=== PATIENT | female | born 1985 | race Caucasian/White ===

== ENCOUNTER 2017-07-25 16:13 | Inpatient (IN) | payer OTHER ==
[~2017-07-25] VITALS: Ht 152.4 cm; Wt 54.4 kg
--- NOTE | 2017-07-25 16:20 | NUR ---
Pre-Admission Assessment Upholstery Restorer assessed pt in intake room with pt's mother present. Pt is cooperative, anxious and easily distracted. VS WNL. Pt is not actively under the influence and is appropriate for admission into [facility]
--- NOTE | 2017-07-25 17:20 | NUR ---
Admission Note VS: 135/88,78,18,98.4,97%,0/10 COWS: 7 Pt admitted to [facility] per ambulation, accompanied by direct marketing coordinator. Pt is a female to male transgender and skin check performed by BETTY Davis, skin intact per report. Pt is admitted under the care of Dr. Dumont. Pt was seen by automobile service writer in intake where assessment was performed. Pt is anxious, cooperative and has poor concentration. A/O x4 and makes needs known. Pt denies HI/SI or A/VH. Pt endorses emotional volatility, describing rapid cycling behaviors with impulsive and unpredictable behaviors. Pt endorses feelings of depression and anxiety. Urine and blood samples collected in intake, results pending. Pt reports a home medication of Testosterone, but is unable to locate the medication and is not sure of dosing. Pt denies any significant medical history, stating, " depression, but that was years ago." Also states a history of seizure, 10-12 years ago r/t over-heating. Pt is a full code, eats a regular diet and has NKA. Pt states he has been in 15 previous treatment centers, " between detox and rehab, this will be 15." Pt states he was in a facility 3 days ago and left the facility for 15 minutes to run around the block, " not to use." Pt admits this was impulsive and immature and takes responsibility for his transgressions. Substance Use History 1. Heroin - .5 grams IV daily - since age 23 2. Meth - smokes daily, unknown amount.
[2017-07-25 17:34] LABS: *URINE HCG, QUAL NEGATIVE (NEGATIVE)
[2017-07-25 17:38] LABS: ALANINE AMINOTRANSFERASE 45 U/L (14-59); ALKALINE PHOSPHATASE 94 U/L (50-136); ASPARTATE AMINOTRANSFERASE 38 U/L (15-37); BILIRUBIN,TOTAL 0.2 mg/dL (0.2-1.0); CARBON DIOXIDE 28 mmol/L (21-32); CHLORIDE 104 mmol/L (98-107); CREATININE 0.9 mg/dL (0.6-1.3); GLUCOSE 103 mg/dL (74-106); MAGNESIUM 1.8 mg/dL (1.8-2.4); TOTAL PROTEIN, SERUM 8.1 g/dL (6.4-8.2); UREA NITROGEN, BLOOD 8 mg/dL (7-18)
[2017-07-25 17:42] LABS: *AMPHETAMINE, URINE NEGATIVE (NEGATIVE); *BARBITURATE, URINE NEGATIVE (NEGATIVE); *CANNABINOID, URINE NEGATIVE (NEGATIVE); *COCCAINE, URINE NEGATIVE (NEGATIVE); *OPIATE, URINE POSITIVE (NEGATIVE); *PHENCYCLIDINE SCREEN,URINE NEGATIVE (NEGATIVE)
--- NOTE | 2017-07-25 17:53 | NUR ---
PCP Pt states she receives services at [facility] in [place]. States she sees someone, " named Mandy, I don't know the last name."
[2017-07-25 18:01] LABS: ETHANOL < 3 MG/DL (0-0)
[2017-07-25 18:02] LABS: BASOPHILS # (AUTO) 0.1 K/uL (0.0-8.0); BASOPHILS % (AUTO) 1.2 % (0.0-2.0); EOSINOPHILS # (AUTO) 0.1 K/uL (0.0-0.7); EOSINOPHILS % (AUTO) 1.2 % (0.0-7.0); HEMATOCRIT 40.2 % (37-47); HEMOGLOBIN 13.6 G/DL (12.0-16.0); LYMPHOCYTES % (AUTO) 19.9 % (20.5-51.5); MEAN CORPUSCULAR HEMOGLOBIN 33.1 UUG (27.0-31.0); MEAN CORPUSCULAR HGB CONC 34 g/dL (32.0-37.0); MEAN CORPUSCULAR VOLUME 98.3 FL (81.0-99.0); MONOCYTES # (AUTO) 0.6 K/UL (0.1-1.30); MONOCYTES % (AUTO) 5.8 % (0.0-11.0); NEUTROPHILS # (AUTO) 7.3 K/UL (1.8-8.9); NEUTROPHILS % (AUTO) 71.9 % (38.5-71.5); PLATELET COUNT (AUTO) 249 K/UL (150-450); RED BLOOD CELL COUNT(AUTO) 4.09 MIL/UL (4.2-5.4); WHITE BLOOD COUNT (AUTO) 10.1 K/UL (4.0-11.2)
--- NOTE | 2017-07-25 18:45 | NUR ---
End of Shift Pig Breeder provided report on 31 year old female to male transgender admitted on 07/25/17 for Heroin and Methamphetamine detoxification. Pt reports a history of IV Heroin use, 0.5 gram a day and smoking meth, unknown amount daily. Pt reports NKA, a regular diet and full code. Endorses PMH of depression and one seizure 10-12 years ago related to heat exhaustion. Pts initial COWS 7 scored at 1620. Pt is cooperative and pleasant, makes needs known A/O x4. Bed in low position, wheels locked, side rails up x2 and call light within reach.
[2017-07-25 18:48] LABS: BAND % (MANUAL) 8 % (0-10); LYMPHOCYTES % (MANUAL) 21 % (20-40); MONOCYTES % (MANUAL) 4 % (2-10); NEUTROPHILS % (MANUAL) 67 % (42-75)
--- NOTE | 2017-07-25 19:30 | NUR ---
Start of Shift Note: Report received from day shift nurse. Pt is a 31F, admitted for Opiate and Methamphetamine dependence. Pt was in bed with eyes closed upon the start of shift. AOx4 without s/s of acute distress noted. Pt is full code, on regular diet, and on fall/seizure precautions. Pt noted with NKA. Pt reports hx of Anxiety, Depression. Pt is currently on Subutex PRN to manage withdrawal symptoms. Per day shift nurse, pt's last COWS was 7 at 1600. Bed in lowest position. Side rails up x2. Call light functioning and within reach. All needs attended and met. Will continue to monitor.
[2017-07-25 20:00] VITALS: BP 126/90
--- NOTE | 2017-07-25 20:39 | NUR ---
PRN Benadryl: Pt requested sleep medication. PRN Benadryl given as ordered.
[2017-07-26] VITALS: BP 113/75
[2017-07-26 04:00] VITALS: BP 113/75
--- NOTE | 2017-07-26 07:12 | NUR ---
End of Shift Note: Pt is a 31F, admitted for Opiate and Methamphetamine dependence. Pt is full code, on regular diet, and on fall/seizure precautions. Pt noted with NKA. Pt reports hx of Anxiety, Depression. Pt slept for 6 hours. Respirations even and unlabored. Last COWS was 2. No N/V noted during the shift. Pt reported inability to sleep. PRN Benadryl given as ordered. Fall and Sz precautions observed. Bed in lowest position. Side rails up x2. Call light functioning and within reach. All needs attended and met. Will endorse to day shift nurse.
--- NOTE | 2017-07-26 07:20 | NUR ---
Start of Shift Tie Fastener received report on 31 year old female, female to male transgender. Pt identifies as a male, Rojas. Admitted 07/25/17 for Heroin and Methamphetamine detoxification. Pt has NKA, eats a regular diet and is a full code. Reports a PMH of depression. Pt had a OT dose of Subutex administered last night with an additional PRN of Benadryl as well. Tie Fastener encounters pt in room resting with eyes closed. Respiration even and unlabored, rise and fall of chest noted Bed in low position, wheels locked, side rails up x2 and call light within reach.
[2017-07-26 08:53] VITALS: BP 131/82
[2017-07-26 12:30] VITALS: BP 100/66
--- NOTE | 2017-07-26 12:31 | NUR ---
OT Clonidine/Subutex ordered medication for pt after assessment. Pt to not be on a taper. Orders to treat the symptoms and use the Subutex PRN, when needed. Environmental Compliance Specialist administered medication per order, pt tolerated well. Will continue to monitor, support and [id number] according to plan of care.
--- NOTE | 2017-07-26 13:01 | NUR ---
OT Subutex Re-assessment Pt resting in room, lying in bed with eyes closed. Respirations even and unlabored, with rise and fall of chest noted. No complaints voiced.
--- NOTE | 2017-07-26 13:31 | NUR ---
OT Clonidine Re-assessment Pt remains resting with eyes closed, no complaints voiced.
[2017-07-26 16:30] VITALS: BP 112/78
--- NOTE | 2017-07-26 18:53 | NUR ---
End of Shift Worm Raiser provided report on 31 year old female, female to male transgender. Pt identifies as a male, Rojas. Admitted 07/25/17 for Heroin and Methamphetamine detoxification. Pt has NKA, eats a regular diet and is a full code. Reports a PMH of depression. Pt had a OT dose of Subutex and Clonidine and will not be placed on a taper. Received orders to use PRN Subutex as needed. Pt is A/O x4, calm and cooperative. Pleasant and makes needs known. Clear thought and speech content. Bed in low position, wheels locked, side rails up x2 and call light within reach.
--- NOTE | 2017-07-26 19:37 | NUR ---
Start of Shift Report received from AM shift. Patient is a 31 year old female to male transgender. Pt identifies as a male, Rojas. Admitted 07/25/17 for Heroin and Methamphetamine detoxification. Pt has NKA, regular diet and is a full code. Reports a PMH of anxiety and depression. Currently on Subutex PRN with last COWS 3. At change of shift patient in room resting with no noted complaints offered. Bed locked in lowest position, side rails up x2 and call light within reach.
[2017-07-26 20:00] VITALS: BP 109/68
--- NOTE | 2017-07-26 20:38 | NUR ---
PRN MEDICATION Benadryl 50 mg PO given at 2030 for c/o insomnia with effect pending Clonidine 0.1 mg PO given at 2031 for anxiety/restlessness COWS 4. effect pending Tylenol 650 mg PO given at 2037 for c/o throat pain. 4 on scale 1-10. effect pending.
--- NOTE | 2017-07-26 21:38 | NUR ---
REASSESSMENT OF PATIENT patient reassessed one hour after administration of PRN medications. Ptient resting comfortably in bed with eyes closed/ states feeling sleepy after administration of Benadryl. Throat pain improved to a 2 on scale of 1-10 after Tylenol. No further c/o anxiety at present time one hour after Clonidine 0.1 mg. Effectiveness noted.
[2017-07-27] VITALS: BP 103/64
--- NOTE | 2017-07-27 04:10 | NUR ---
0400 COWS deferred. Vital signs refused. Patient refused 0400 vital signs. Stated he wants to sleep. COWS deferred for sleep.
--- NOTE | 2017-07-27 06:52 | NUR ---
End of shift Patient is a 31 year old female to male transgender who identifies as male. He was admitted on for opiate and methamphetamine dependence. He is on Subutex PRN. He has a history of anxiety and depression. Denies SI or HI. History of a seizure approximately 10-12 years ago. Pt is full code, on a regular diet, and on fall/seizure precautions. Pt noted with NKA. Vital signs at 1999 BP 109/68, P 100, R 13, SPO2 99% on RA, T 98.7. COWS 4. Patient received Clonidine 0.1 mg PO PRN at 2031, and Benadryl 50mg PO at 2030 with good effect. Patient with c/o soreness in throat Charge nurse and MD made aware. Patient afebrile. Received Tylenol 650 mg PO at 2037 with effect noted. VS at 0000 BP 103/64, P 69, R 13, SPO2 98% on RA, T 98.2 COWS 3. Pt slept for 9 hours . Fall and SZ precautions in place. Bed in lowest and locked position. Side rails up x2. Call light within reach. Intake 1600 ml output 5 voids. Report to day shift nurse.
--- NOTE | 2017-07-27 07:15 | NUR ---
Start of Shift Report from the night nurse: pt is 31 y.o female/transgender here for Opiate r/t heroin r/t 0.2g and Methamphetamine "unknown" intake amount; PRN Subutex only and observation. Pt is a full code, NKA, seizure precautions ordered. Hhx: anxiety, depression and smoker. V/S stable. Skin is intact. PRN Clonidine, Benadryl and Tylenol given last night. Pt c/o sore throat so I will f/u with MD. Last COWS 3. Pt is asleep in room. Will cont. to monitor the pt.
[2017-07-27 08:00] VITALS: BP 104/67
--- NOTE | 2017-07-27 09:45 | NUR ---
PRN Medication Administration Pt is in room and c/o lower back pain 5/10; PRN Motrin given as ordered. Will reassess in 1H.
--- NOTE | 2017-07-27 10:45 | NUR ---
Reassessment Pt is getting ready to go to group and denies pack pain; Motrin is effective. Will cont. to monitor the pt.
[2017-07-27 11:06] LABS: HEPATITIS B SURFACE AG Negative (Negative)
[2017-07-27 12:00] VITALS: BP 113/72
[2017-07-27] MEDS ORDERED: HYDR-3895 PO (15:39)
[2017-07-27] MEDS ORDERED: METH-406 PO (15:39)
[2017-07-27] MEDS ORDERED: GABA-534 PO (15:39)
[2017-07-27] MEDS ORDERED: DIPH50CA37 PO (15:39)
[2017-07-27] MEDS ORDERED: IBUP-1955 PO (15:39)
[2017-07-27 16:00] VITALS: BP 101/62
--- NOTE | 2017-07-27 19:30 | NUR ---
Start of Shift Report received from AM shift. Patient is a 31 year old female to male transgender. Pt identifies as a male. Admitted 07/25/17 for Heroin detox and Methamphetamine addiction. Pt has NKA, regular diet and is a full code. Reports a PMH of anxiety and depression. Last COWS 1. Vital signs stable. At change of shift patient up and active on unit, attending group. Bed locked in lowest position, side rails up x2 safety precautions in place, and call light within reach.
--- NOTE | 2017-07-27 19:30 | NUR ---
End of Shift Report to night nurse: pt is 31 y.o female/transgender here for Opiate r/t heroin r/t 0.2g and Methamphetamine "unknown" intake amount; PRN Subutex only and observation. Pt is a full code, NKA, seizure precautions ordered. Hhx: anxiety, depression and smoker. V/S stable. Skin is intact. PRN Motrin 600mg given 1345pm for back pain. Pt c/o sore throat and new orders for oral swab & endorsed to night nurse to f/u. Last COWS 1. New order for the pt to be d/c'd tomorrow.
[2017-07-27 20:00] VITALS: BP 110/71
--- NOTE | 2017-07-27 20:49 | NUR ---
PRN medication Patient received clonidine 0.1mg PO prn at 2048 for anxiety PAtient received Benadryl 50 mg PO at 2048 for C/O difficulty sleeping. Patient received PRN Cepacol lozenge for throat pain. effect pending. Influenza swab completed as ordered. Strep Swab completed as ordered.
--- NOTE | 2017-07-27 21:49 | NUR ---
Reassessment of patient Patient reassessed one hour after administration of clonidine 0.1mg PO for anxiety, patient reports feeling more relaxed and without noted anxiety. Patient reassessed one hour after receiving Benadryl 50 mg PO for C/O difficulty sleeping patient was in bed with eyes closed upon reassessment. Patient states "I was falling asleep now" Patient reassessed one hour after PRN Cepacol lozenge for throat pain administered. States it helped some with no noted throat pain present at reassessment time.
--- NOTE | 2017-07-28 00:06 | NUR ---
COWS deferred Vital signs refused Vital signs at 0000 refused. COWS deferred for sleep.
--- NOTE | 2017-07-28 04:03 | NUR ---
COWS deferred Vital signs refused Vital signs at 0400 refused. COWS deferred for sleep.
--- NOTE | 2017-07-28 06:52 | NUR ---
End of shift Patient is a 31 year old female to male transgender who identifies as male. He was admitted on for opiate and methamphetamine dependence. He has a history of anxiety and depression. Denies SI or HI. History of a seizure approximately 10-12 years ago. Pt is full code, on a regular diet, and on fall/seizure precautions. Pt noted with NKA. Vital signs at 1999 BP110/71, P 102, R 18, SPO2 99% on RA, T 98.2. COWS 4. Patient received Clonidine 0.1 mg PO PRN, cepacol lozenge and Benadryl 50mg PO at 2048 with good effect. SWAB of nares for influenza A and B completed, result negative. SWAB of throat for strep A completed, result negative.. Patient afebrile. Pt slept for 6 hours Intake 841 ml, output 3 voids. Fall and SZ precautions in place. Bed in lowest and locked position. Side rails up x2. Call light within reach. Report given to AM nurse.
--- NOTE | 2017-07-28 07:00 | NUR ---
Start of Shift Report from the night nurse with update: pt is 31 y.o female/transgender here for Opiate r/t heroin r/t 0.2g and Methamphetamine "unknown" intake amount; PRN Subutex only and observation. Pt is a full code, NKA, seizure precautions ordered. Hhx: anxiety, depression and smoker. V/S stable. Skin is intact. Throat swab done last night and is negative to staph and strep; new orders for Cepacol lozenger since pt c /o sore throat and PRN Clonidine & Benadryl. Pt is scheduled to be d/c'd today so will prep pt for d/c. Pt is asleep in room. Last COWS 4.
[2017-07-28 08:00] VITALS: BP 106/70
--- NOTE | 2017-07-28 09:31 | NUR ---
Discharge Pt is A&Ox 4 ambulatory independently. Features symmetrical, PERRLA 3mm, CERON, no dizziness, no tremors or numbness & tingling noted. Pt denies chest pain & pulses present. Clear lung sounds in bilateral U/L lobes no SOB or acute respiratory distress noted. V/S Stable. No Ab discomfort, no N/V/D noted. Pt denies dysuria. No w/d s/sx noted. Skin is intact. Pt is given belongings and d/c summary packet with written Rx, no home medications brought. Pt is chaperoned to the lobby with to the [employer] and transported to [facility] facility.
== END 2017-07-28 09:31 | disposition other institution (70) | DRG 895 ==
LOC: SRC 16:13 → EDBD 16:13
PROVIDERS: ADMIT Internal Medicine; ATTEND Internal Medicine
PROC: HZ2ZZZZ Detoxification Services for Substance Abuse Treatment (ICD-10-PCS; principal; 2017-07-25)
PROC: HZ41ZZZ Group Counseling for Substance Abuse Treatment, Behavioral (ICD-10-PCS; principal; 2017-07-25)
DX: F11.23 Opioid dependence with withdrawal (principal); F15.20 Other stimulant dependence, uncomplicated; F64.8 Other gender identity disorders; F17.210 Nicotine dependence, cigarettes, uncomplicated; Z59.1 Inadequate housing; Z59.0 Homelessness; F32.9 Major depressive disorder, single episode, unspecified; J02.9 Acute pharyngitis, unspecified; Z20.5 Contact with and (suspected) exposure to viral hepatitis; F41.9 Anxiety disorder, unspecified
CPT/HCPCS: 36415; 70030-TC; 80307; 80361; 83735; 84703; 85025; 86403; 86580; 86592; 86705; 86803; 87070; 87340; 87400; 87806; A4663; G0480; Q0163